=== PATIENT | female | born 1955 | race Caucasian/White ===

== ENCOUNTER 2017-05-02 05:59 | Day surgery (SDC) | payer BC, OTHER ==
[~2017-05-02] VITALS: Ht 162.6 cm; Wt 100.7 kg
--- NOTE | ~2017-05-02 | S ---
[facility] [address] [place] [address] SURGICAL PATH RPT PROCEDURE Name: TERENCE SIMPSON Room #: DEP [facility].#: [id number] Admission: 05/02/17 Date of : 51 Discharge: 05/02/17 Report #: [id number] Path Case #: [id number] PATHOLOGY REPORT COLLECTION DATE: 05/02/2017 RECEIVED DATE: 05/02/2017 SUBMITTING PHYS: Dr. Hamilton Jacques OTHER PHYS: Dr. Ivan Sanchez SPECIMEN(S) RECEIVED: A.Right paratracheal lymph nodes * * * * * * * * * * * * FINAL DIAGNOSIS: Lymph nodes (multiple), right paratracheal lymph nodes, dissection: - At least eleven fragments of lymph node tissue showing non-necrotizing granulomatous inflammation. - GMS special stain positive for numerous yeast, morphologically resembling Histoplasma species. - Atypical lymphoid hyperplasia with mildly increased kappa:lambda ratio. (please see comment) COMMENT: Examination of the right paratracheal lymph nodes shows occasional follicles with reactive germinal centers. Rare large lymphoid cells, consistent with immunoblasts are noted. Definite Jairo-Alexis cells or metastatic carcinoma are not identified. Immunohistochemical stains with appropriate control show: (Block A1) CD20: highlights B lymphoid cells within germinal centers and mantle zone PAX-5: highlights B lymphoid cells within germinal centers and mantle zone CD3: highlights admixed T lymphoid cells CD5: highlights admixed T lymphoid cells CD10: highlights B lymphoid cells within germinal centers CD30: highlights rare immunoblasts CD15: highlights few rare neutrophils CD45: highlights B and T lymphoid cells BCL-6: highlights B lymphoid cells within germinal centers BCL-2: highlights B and T lymphoid cells with lack of staining within germinal centers CD23: highlights follicular dendritic mesh works JIMMIE: negative BCL-1: negative [place] and lambda MALLORY: mildly increased kappa:lambda ratio Based on the morphology and immunohistochemical staining pattern, [facility] [address] [place] [address] SURGICAL PATH RPT PROCEDURE Name: TERENCE SIMPSON Room #: DEP [facility]#: [id number] Admission: 05/02/17 Date of : 51 Discharge: 05/02/17 Report #: [id number] Path Case #: [id number] these findings are favored to be that of a benign reactive lymph node. There is no definite diagnostic evidence of a lymphoproliferative disorder. However, due to the slightly kappa predominant light chains, the finding is atypical. The significance of this atypical finding is uncertain. Although this may be secondary to an infectious process, the possibility of an early or evolving lymphoproliferative disorder should also be considered. Close clinical follow-up and re-biopsy with flow cytometry of a suspicious peripheral lymph node are suggested if clinically indicated. Acid fast bacillus special stain performed on A1- negative for mycobacterial Gomori methenamine silver stains performed on block A1 numerous yeast morphologically resembling Histoplasma species. Co-reviewed with Dr. Quin Rodriguez.and Dr. Radha Zafar (IUV:ALILSON:db:; 05/08/2017) PATHOLOGIST: Pattie Ng M.D. REPORT ELECTRONICALLY SIGNED BY: Pattie Ng M.D. DATE/TIME: 05/14/2017 23:00 * * * * * * * * * * * * GROSS PATHOLOGY: Part A is received fresh and is labeled "right paratracheal lymph nodes" and consists of a 2.0 x 1.0 x 0.7 cm collection of red/shelley fragments of lymphoid tissue. The specimen is entirely submitted as A1FS. (SKM/db; 05/04/2017) FROZEN SECTION DIAGNOSIS: (Sean Velasquez M.D.) A1FS. Right paratracheal lymph nodes: - Lymphoid tissue with reactive changes. The findings in this case were relayed to Dr. Jacques at the time of the procedure. Testing performed [place] [facility] [place] [address] CLINICAL HISTORY: Lymphadenopathy INITIAL CPT CODE(S): A; 12877, 57355, 84821, 64545, 92527, 42376, 21523, 51998, 25698, 95144, 00117, 23279, 18159, 04899, 13090, 61499, 73808, 45490, 08123, 63971, 85217, [address] [place] [address] SURGICAL PATH RPT PROCEDURE Name: HOLLY SIMPSONKRISTY Dumont Room #: DEP [facility]#: [id number] Admission: 05/02/17 Date of : 51 Discharge: 05/02/17 Report #: [id number] Path Case #: [id number] [facility] by [facility], [address] [place] [address]. Technical services performed by [facility] at [address] [place] [address], [facility], [address], [place] [address]. [facility] [address] [place] [address] PHONE: [phone] DIRECTOR: Andrés Lazcano M.D. * * * END OF REPORT * * *
--- NOTE | ~2017-05-02 | EKG ---
[address] [address] ELECTROCARDIOGRAM REPORT Name: TERENCE SIMPSON Room #: 150-6 [facility]#: [id number] Admission: 05/02/17 Attend Phys: Hamilton Jacques MD Discharge: Date of : 51 Report #: [id number] THIS REPORT FOR: //name// [facility] Test Date: 2017-05-02 Test Time: 08:30:11 Pat Name: TERENCE SIMPSON Department: Room: [facility] Gender: F Field Clerk: ANGELICA : 1955 Requested By: Hamilton Jacques Order Number: [id number] MD: Mohit Cornejo Measurements Intervals [place]: 63 P: 71 MN: 179 QRS: 49 QRSD: 100 T: 30 QT: 400 QTc: 410 Interpretive Statements Sinus rhythm Baseline wander in lead(s) III Compared to ECG 11/10/2013 16:03:15 No significant changes Electronically Signed On 05-02-2017 8:49:52 CDT by Mohit Cornejo [email or web address] <ELECTRONICALLY SIGNED> By: Mohit Cornejo MD 05/02/17 0849 9 9 Mohit Cornejo MD /EPI
[~2017-05-02 05:59] MED LIST: ACETAMINOPHEN-1 EAC1 PO; ACETAMINOPHEN325 M1 PO; ACETAMINOPHEN650 M5 PO; ADDERALL 30 MG30 MG PO; ASPIRIN EC81 M1 PO; COLACE100 MG PO; DICLOFENAC SOD50 M1 PO; EFFEXOR XR150 MG PO; HYDROCHLOROTH12.5 MG PO; LISINOPRIL5 MG PO; LOPRESSOR25 PO; METOPROLOL TARTRATE PO; MULTI VITAMIN1 EACH PO; PANTOPRAZOLE SO40 M1 PO; PREDNISONE 5 MG5 M1 PO; REGLAN 10 MG TA10 M1 PO; VENTOLIN HFA 1818 GM INH; VOLTAREN50 MG PO; XANAX 0.5 MG0.5 M1 PO
[2017-05-02 08:27] LABS: HEMATOCRIT 36.9 % (37.0-47.0); HEMOGLOBIN 12.4 gm/dL (12.0-15.0); MCH 28.9 pg (26.0-34.0); MCHC 33.7 g/dL (28.0-37.0); MCV 85.9 fL (80.0-100.0); RBC 4.3 mil/uL (4.20-5.00); RDW 13.9 % (10.5-14.5); WBC 5.5 thou/uL (4.0-11.0)
[2017-05-02 08:39] LABS: CREATININE 0.9 mg/dL (0.6-1.0); POTASSIUM 4.2 mmol/L (3.5-5.1)
[2017-05-02 10:15] VITALS: BP 117/75
== END 2017-05-02 15:00 | disposition home or self-care (01) ==
LOC: TBA 05:59 → OR 05:59 → TBA 06:00 → OR 09:46
PROVIDERS: Thoracic Surgery (Cardiothoracic Vascular Surgery)
DX: I88.8 Other nonspecific lymphadenitis (principal); I10 Essential (primary) hypertension; J45.909 Unspecified asthma, uncomplicated; M19.90 Unspecified osteoarthritis, unspecified site; F32.89 Other specified depressive episodes; E66.09 Other obesity due to excess calories; Z87.891 Personal history of nicotine dependence; Z90.710 Acquired absence of both cervix and uterus; Z90.49 Acquired absence of other specified parts of digestive tract; Z98.890 Other specified postprocedural states; Z86.73 Personal history of transient ischemic attack (TIA), and cerebral infarction without residual deficits; Z79.899 Other long term (current) drug therapy; Z68.32 Body mass index [BMI] 32.0-32.9, adult
CPT/HCPCS: 50010; 50101; 50386; 50403; 51301; 54118; 56524; 56526; 62110; 62900; 64029; 65002; 65020; 65040; 65043; 65090; 70005